=== PATIENT | female | born 2000 | race Hispanic/Latino ===

== ENCOUNTER 2023-01-24 12:42 | Emergency (ER) | payer SELFPAY ==
--- NOTE | 2023-01-24 13:41 | RAD REPORT ---
EXAM DESCRIPTION: RAD - Chest Single View - 01/24/2023 1:27 pm CLINICAL HISTORY: Chest pain;Dyspnea Chest pain. COMPARISON: No comparisons FINDINGS: Portable technique limits examination quality. The lungs are grossly clear. The heart is normal in size. No displaced fractures. IMPRESSION: No acute intrathoracic process suspected.
[2023-01-24 14:47] LABS: Hematocrit 38.8 % (36.0-45.0); Lymphocytes % 28.6 % (15.3-44.8); MCV 86.6 fL (80-100); MPV 8.2 fL (7.6-11.3); RBC Red Blood Cell Count 4.48 M/uL (3.86-4.86)
[2023-01-24 15:13] LABS: BUN Blood Urea Nitrogen 13 mg/dL (7-18); Bicarbonate 28 mmol/L (21-32); Glomerular Filtration Rate 125 ml/min (=/>90); Glucose Level 93 mg/dL (74-106); Potassium 3.4 mmol/L (3.5-5.1); Sodium Level 140 mmol/L (136-145)
[2023-01-24 15:22] LABS: Troponin High Sensitivity < 3.0 pg/mL (<58.9)
[2023-01-24 16:19] VITALS: TEMP 98.2; O2SAT 100
[2023-01-24 16:22] VITALS: BP 109/78
--- NOTE | 2023-01-28 13:17 | EKG ---
Test Date: 2023-01-24 Test Time: 13:10:58 Steel Sash Erector: RABIA MEASUREMENT RESULTS: Intervals: Rate: 73 NE: 128 QRSD: 78 QT: 400 QTc: 440 Preston: P: 50 NE: 128 QRS: 80 T: 33 INTERPRETIVE STATEMENTS: Normal sinus rhythm with sinus arrhythmia Normal ECG No previous ECG available for comparison Electronically Signed On 01-28-23 13:09:20 CDT by Brian Jacobson
--- NOTE | 2023-02-08 15:12 | ER ---
Nurse's Notes [facility] Name: Becky Alexandra Age: 22 yrs Sex: Female : 2000 Arrival Date: 01/24/2023 Time: 12:46 Bed 12 Private MD: Diagnosis: Shortness of breath;Other specified anxiety disorders Presentation: 01/24 12:56 Chief complaint: Patient states: SOB for last 2.5 weeks, and vertigo when moving hb quickly. Coronavirus screen: Vaccine status: Patient reports receiving the 2nd dose of the covid vaccine. Ebola Screen: No symptoms or risks identified at this time. Initial Sepsis Screen: Does the patient meet any 2 criteria? No. Patient's initial sepsis screen is negative. Does the patient have a suspected source of infection? No. Patient's initial sepsis screen is negative. Risk Assessment: Do you want to hurt yourself or someone else? Patient reports no desire to harm self or others. Onset of symptoms was January 07, 2023. 12:56 Method Of Arrival: Ambulatory hb 12:56 Acuity: CELINE 3 hb Triage Assessment: 12:59 General: Appears in no apparent distress. comfortable, Behavior is calm, cooperative, eh3 appropriate for age. Pain: Complains of pain in anterior aspect of left upper chest Pain radiates to left scapular area. EENT: No signs and/or symptoms were reported regarding the EENT system. Neuro: Level of Consciousness is awake, alert, obeys commands, Oriented to person, place, time, situation. Cardiovascular: Capillary refill < 3 seconds Patient's skin is warm and dry. Respiratory: Reports shortness of breath on exertion Airway is patent Respiratory effort is even, unlabored, Respiratory pattern is regular, symmetrical. GI: Abdomen is flat, non-distended, Reports diarrhea. : Reports burning with urination. Derm: Skin is pink, warm \T\ dry. Musculoskeletal: Circulation, motion, and sensation intact. 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 - Social history:: Smoking status: Reported history of juuling and/or vaping. Patient uses alcohol, occasionally. Screenin:59 [facility] ED Fall Risk Assessment (Adult) Score/Fall Risk Level 0 - 2 = Low Risk. Abuse eh3 screen: Denies threats or abuse. Denies injuries from another. Nutritional screening: No deficits noted. Tuberculosis screening: No symptoms or risk factors identified. Assessment: 12:59 Reassessment: No changes from previously documented assessment. See triage assessment. eh3 Pain: Pain began 2.5 weeks ago. 12:59 Pain: Complains of pain in anterior aspect of left upper chest Pain radiates to left eh3 scapular area. 14:00 Reassessment: Patient appears in no apparent distress at this time. Patient and/or 3 family updated on plan of care and expected duration. Pain level reassessed. Patient is alert, oriented x 3, equal unlabored respirations, skin warm/dry/pink. 15:00 Reassessment: Patient appears in no apparent distress at this time. Patient and/or eh3 family updated on plan of care and expected duration. Pain level reassessed. Patient is alert, oriented x 3, equal unlabored respirations, skin warm/dry/pink. Vital Signs: 12:56 BP 139 / 87; Pulse 74; Resp 18; Temp 98.2(TE); Pulse Ox 100% on R/A; Weight 62.14 kg; hb Height 5 ft. 2 in. ; 14:00 BP 107 / 70; Pulse 68; Resp 18; Pulse Ox 100% on R/A; eh3 15:00 BP 109 / 78; Pulse 60; Resp 15; Pulse Ox 100% on R/A; eh3 12:56 Body Mass Index 25.06 (62.14 kg, 157.48 cm) ED Course: 12:46 Patient arrived in ED. mr 12:50 Valarie Garcia FNP is [facility]. 7 12:50 Duane Ochoa MD is Attending Physician. [facility] 12:58 Triage completed. hb 12:59 Arm band placed on right wrist. eh3 13:15 Patient has correct armband on for positive identification. Placed in gown. Bed in low eh3 position. Call light in reach. Side rails up X2. Adult w/ patient. Client placed on continuous cardiac and pulse oximetry monitoring. NIBP monitoring applied. Door closed. Noise minimized. Lights dimmed. Warm blanket given. 13:15 Inserted saline lock: 20 gauge in right antecubital area, using aseptic technique. eh3 Blood collected. Patient maintains SpO2 saturation greater than 95% on room air. 13:29 XRAY Chest (1 view) In Process Unspecified. EDMT 14:26 Lizabeth Escobar, RN is Primary Nurse. [facility] 15:52 No provider procedures requiring assistance completed. IV discontinued, intact, 3 bleeding controlled, No redness/swelling at site. Pressure dressing applied. Administered Medications: No medications were administered Medication: 15:52 VIS not applicable for this client. 3 Outcome: 15:29 Discharge ordered by . [facility] 15:53 Discharged to home ambulatory, with significant other. 3 15:53 Condition: stable 15:53 Discharge instructions given to patient, significant other, Instructed on discharge instructions, follow up and referral plans. medication usage, Demonstrated understanding of instructions, follow-up care, medications, Prescriptions given X 1. 15:53 Patient left the ED. 3 Signatures: Dispatcher [employer] [facility] PottsAugustina welsh mr Aruna Garg, MERARY REAGAN Lizabeth Escobar, RN RN [facility] Valarie Garcia, ANALYSIS OR RESEARCH SAFETY INSPECTOR ANALYSIS OR RESEARCH SAFETY INSPECTOR [facility] Corrections: (The following items were deleted from the chart) 14:46 13:45 Reassessment: No changes from previously documented assessment. See triage [facility] assessment [facility] 14:46 13:45 Pain: Pain began 2.5 weeks ago 3 3
--- NOTE | 2023-02-08 15:12 | EDPHYS ---
Physician Documentation [facility] Name: Becky Alexandra Age: 22 yrs Sex: Female : 2000 Arrival Date: 01/24/2023 Time: 12:46 Bed 12 Private MD: ED Physician Duane Ochoa HPI: 01/24 12:59 This 22 yrs old Female presents to ER via Ambulatory with complaints of Chest jh7 Pain. 12:59 Onset: The symptoms/episode began/occurred 2.5 week(s) ago. Associated signs and jh7 symptoms: Pertinent positives: shortness of breath, Pertinent negatives: abdominal pain, diarrhea, earache, fever, sore throat, vomiting, wheezing. Modifying factors: the patient symptoms are aggravated by activity. 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 - Social history:: Smoking status: Reported history of juuling and/or vaping. Patient uses alcohol, occasionally. ROS: 12:59 Constitutional: Negative for fever, chills, and weight loss, Eyes: Negative for injury, jh7 pain, redness, and discharge, Neck: Negative for injury, pain, and swelling, Abdomen/GI: Negative for abdominal pain, nausea, vomiting, diarrhea, and constipation, Back: Negative for injury and pain, MS/Extremity: Negative for injury and deformity, Skin: Negative for injury, rash, and discoloration, Neuro: Negative for headache, weakness, numbness, tingling, and seizure. 12:59 Cardiovascular: Positive for chest pain, Negative for edema, orthopnea. 12:59 Respiratory: Positive for shortness of breath, Negative for cough, wheezing. 12:59 All other systems are negative. Exam: 12:59 Constitutional: This is a well developed, well nourished patient who is awake, alert, jh7 and in no acute distress. Head/Face: Normocephalic, atraumatic. Eyes: Pupils equal round and reactive to light, extra-ocular motions intact. Lids and lashes normal. Conjunctiva and sclera are non-icteric and not injected. Cornea within normal limits. Periorbital areas with no swelling, redness, or edema. Neck: Trachea midline, no thyromegaly or masses palpated, and no cervical lymphadenopathy. Supple, full range of motion without nuchal rigidity, or vertebral point tenderness. No Meningismus. Cardiovascular: Regular rate and rhythm with a normal S1 and S2. No gallops, murmurs, or rubs. Normal PMI, no JVD. No pulse deficits. Respiratory: Lungs have equal breath sounds bilaterally, clear to auscultation and percussion. No rales, rhonchi or wheezes noted. No increased work of breathing, no retractions or nasal flaring. Abdomen/GI: Soft, non-tender, with normal bowel sounds. No distension or tympany. No guarding or rebound. No evidence of tenderness throughout. Back: No spinal tenderness. No costovertebral tenderness. Full range of motion. Skin: Warm, dry with normal turgor. Normal color with no rashes, no lesions, and no evidence of cellulitis. MS/ Extremity: Pulses equal, no cyanosis. Neurovascular intact. Full, normal range of motion. Neuro: Awake and alert, GCS 15, oriented to person, place, time, and situation. Motor strength 5/5 in all extremities. Sensory grossly intact. Normal gait. Vital Signs: 12:56 BP 139 / 87; Pulse 74; Resp 18; Temp 98.2(TE); Pulse Ox 100% on R/A; Weight 62.14 kg; hb Height 5 ft. 2 in. ; 14:00 BP 107 / 70; Pulse 68; Resp 18; Pulse Ox 100% on R/A; eh3 15:00 BP 109 / 78; Pulse 60; Resp 15; Pulse Ox 100% on R/A; eh3 12:56 Body Mass Index 25.06 (62.14 kg, 157.48 cm) hb MDM: 12:50 Patient medically screened. jh7 15:25 Differential diagnosis: viral Infection, bacterial infection, pneumonia Pulmonary jh7 embolism, pleurisy, anxiety. Data reviewed: vital signs, nurses notes, lab test result(s), EKG, radiologic studies, plain films. Scoring Tools HEART Score: Total Score = 0. Counseling: I had a detailed discussion with the patient and/or guardian regarding: the historical points, exam findings, and any diagnostic results supporting the discharge/admit diagnosis, to return to the emergency department if symptoms worsen or persist or if there are any questions or concerns that arise at home. ED course: The patient asked if this could be due to her anxiety. States that she has felt increasingly anxious at home which usually leads to shortness of breath and chest tightness. Agreed to prescribe hydroxyzine to use as needed for anxiety and advised PCP follow-up.. 01/24 12:58 Order name: Basic Metabolic Panel; Complete Time: 15:23 [facility] 01/24 12:58 Order name: CBC with Diff; Complete Time: 15:14 [facility] 01/24 12:58 Order name: D-Dimer; Complete Time: 15:14 [facility] 01/24 12:58 Order name: Troponin HS; Complete Time: 15:23 [facility] 01/24 12:58 Order name: XRAY Chest (1 view); Complete Time: 13:43 [facility] 01/24 12:58 Order name: EKG; Complete Time: 12:58 [facility] 01/24 12:58 Order name: Cardiac monitoring; Complete Time: 14:45 [facility] 01/24 12:58 Order name: EKG - Nurse/Tech; Complete Time: 13:11 [facility] 01/24 12:58 Order name: IV Saline Lock; Complete Time: 14:45 [facility] 01/24 12:58 Order name: Labs collected and sent; Complete Time: 14:45 [facility] 01/24 12:58 Order name: O2 Per Protocol; Complete Time: 14:45 [facility] 01/24 12:58 Order name: O2 Sat Monitoring; Complete Time: 14:45 [facility] EC:10 Rate is 73 beats/min. Rhythm is regular. QRS [place] is Normal. SC interval is normal at [facility] 128 msec. QRS interval is normal at 78 msec. QT interval is normal at 400 msec. No Q waves. T waves are Normal. No ST changes noted. Clinical impression: Normal ECG. Administered Medications: No medications were administered Disposition: 15:53 Co-signature as Attending Physician, Duane Ochoa MD I reviewed the patient's care rn provided by the Advanced Practice Provider and agree with the diagnosis and treatment plan. Disposition Summary: 01/24/23 15:29 Discharge Ordered Location: Home [facility] Problem: new [facility] Symptoms: are unchanged [facility] Condition: Stable [facility] Diagnosis - Shortness of breath [facility] - Other specified anxiety disorders [facility] Followup: [facility] - With: Private Physician - When: 2 - 3 days - Reason: Recheck today's complaints Discharge Instructions: - Discharge Summary Sheet [facility] - Shortness of Breath, Adult [facility] - Managing Anxiety, Adult [facility] Forms: - Medication Reconciliation Form [facility] - Thank You Letter [facility] Prescriptions: - Hydroxyzine HCl 25 mg Oral Tablet - take 1 tablet by ORAL route every 6 hours As needed; 20 tablet; Refills: 0, jh7 Product Selection Permitted Signatures: Dispatcher [employer] EDDuane Graham MD MD rn EscobarLizabeth RN RN [facility] Valarie Garcia, STOCK BUYER [place] [address]
== END 2023-01-24 15:53 | disposition home or self-care (01) ==
LOC: ER 12:42
DX: F41.8 Other specified anxiety disorders (principal)
CPT/HCPCS: 36415; 71045; 80048; 84484; 85025; 85379; 93005; 99284

== ENCOUNTER 2023-03-30 12:25 | Emergency (ER) | payer SELFPAY ==
--- OUTSIDE RECORDS SUMMARY | 2023-03-30 12:28 | XMS REPORT | Continuity of Care Document ---
:2000 Author Organization [facility] t Address [address] [place] [address] Care Team Providers Name Role Phone Unavailable Unavailable Unavailable Problems This patient has no known problems. Allergies, Adverse Reactions, Alerts This patient has no known allergies or adverse reactions. Medications This patient has no known medications. Procedures This patient has no known procedures. Encounters Start End Encounter Admission Attending Care Care Encounter Source Date/Time Date/Time Type Type Clinicians Facility Department ID 2023-02-11 2023-02-11 Outpatient [facility] [place] 13:31:49 13:31:49 [id number] F Clayton 2022-10-31 2022-10-31 Outpatient [facility] [place] 15:08:39 15:08:39 [id number] F Clayton 2022-10-05 2022-10-05 Outpatient [facility] [place] 11:29:30 11:29:30 [id number] F Clayton Results Test Description Test Time Test Comments Results Result Comments Source VITAMIN D, 25 OH 2023-02-12 05:21:57 Test Item Value Reference Range Interpretation Comme nts VITAMIN D, 25 OH (test 27 NG/ML SEE BELOW L E FFECTIVE 11/26/2022, PLEASE NOTE code = 4958) NEW METHODOLOGY IS ELECTROCHEMILUM INESCENCE BINDING ASSAY. NOTE: 25-HYDROX YVITAMIN D ASSAY INCLUDES 25-HYDROXYVITAM IN D2 AND D3. INTERPRETIVE RA NGES PEDIATRIC (<17 YEARS) . . . . . . . . . . . NG/ML 20-100ADULT: IN SUFFICIENT . . . . . . . . . . . . . . N G/ML <20 SUBOPTIMAL . . . . . . . . . . . . . . . NG/ML 20-29 OPTIMAL . . . . . . . . . . . . . . . . . NG/ML 30-100 TSH, THIRD [id number] 05:21:30 Test Item Value Reference Range Interpretation Comments TSH, THIRD GENERATION (test code 1.780 UIU/ML 0.400-4.100 = 2821) [id number] 05:21:30 Test Item Value Reference Range Interpretation Comments FERRITIN (test code 12 NG/ML 13-200 L [facility] has important = 2074) pathology staff changes effective 01/16. New pathology s taff will provide uninter rupted, excellent patie nt care and clinical consultation. S ee URL: [email or web address]. UNLESS O THERWISE INDICATED, ALL TESTING PERFORMED AT [facility] [employer], [place]. [address] [place] [id number] [place] [address] DIRECTOR: Rajesh TONG AIDEN NUMBER [id number] CAP ACCREDITATION N O. [id number] VITAMIN [id number] 05:21:30 Test Item Value Reference Range Interpretation Comments VITAMIN B-12 (test code = 2840) 320 PG/ML 200-950 COMPREHENSIVE METABOLIC [id number] 03:55:46 Test Item Value Reference Range Interpretation Comments GLUCOSE (test code = 79 MG/DL 70-99 2216) BUN (test code = 13 MG/DL -2207) CREATININE (test 0.73 MG/DL 0.60-1.30 code = 2214) eGFR (2020 CKD-EPI) 118 >60 (test code = 15698) ML/MIN/1.73 CALC BUN/CREAT (test 18 RATIO 05-15 code = 2235) SODIUM (test code = 141 MEQ/L 253-650 4734) POTASSIUM (test code 3.7 MEQ/L 3.5-5.4 = 8) CHLORIDE (test code 106 MEQ/L 95-107 = 2215) CARBON DIOXIDE (test 23 MEQ/L 19-31 code = 2206) CALCIUM (test code = 9.7 MG/DL 8.5-10.5 2208) PROTEIN, TOTAL (test 6.9 G/DL 6.1-8.3 code = 2229) ALBUMIN (test code = 4.7 G/DL 3.5-5.2 2201) CALC GLOBULIN (test 2.2 G/DL 1.9-3.7 code = 2240) CALC A/G RATIO (test 2.1 RATIO 1.0-2.6 code = 2234) BILIRUBIN, TOTAL 0.3 MG/DL See_Comment [Automated message] (test code = 2207) The syste m which generated this result transmit aileen reference range : <=1.2. The refe rence range was not u sed to interpret th is result as normal/abnormal . ALKALINE PHOSPHATASE 67 U/L 40-117 (test code = 220) AST (test code = 17 U/L 9-40 2217) ALT (test code = 14 U/L 5-40 2218) CBC W/AUTO DIFF WITH [id number] 03:41:52 Test Item Value Reference Range Interpretation Comments WBC (test code = 6.6 K/UL 3.5-11.0 1001) RBC (test code = 4.80 M/UL 3.80-5.40 1002) HEMOGLOBIN (test code 14.1 G/DL 11.5-15.5 = 1003) HEMATOCRIT (test code 42.0 % 34.0-45.0 = 1004) MCV (test code = 87.5 fL 80.0-99.0 1005) MCH (test code = 29.4 PG 25.0-33.0 1006) MCHC (test code = 33.6 G/DL 31.0-36.0 1007) RDW (test code = 12.4 % 11.5-15.0 1038) NEUTROPHILS (test 68.7 % code = 1008) LYMPHOCYTES (test 24.0 % code = 1010) MONOCYTES (test code 6.0 % = 1011) EOSINOPHILS (test 0.5 % code = 1012) BASOPHILS (test code 0.6 % = 1013) IMMATURE GRANULOCYTES 0.2 % (test code = 1036) NUCLEATED RBCS (test 0.0 /100 WBC'S See_Comment [Aut omated code = 1065) message] The sy stem which generated this result transmitted reference range : 0.0. The refere nce range was not u sed to interpret th is result as normal/abnormal . PLATELET COUNT (test 261 K/UL 130-400 code = 1015) ABSOLUTE NEUTROPHILS 4.55 K/UL 1.50-7.50 (test code = 1066) ABSOLUTE LYMPHOCYTES 1.59 K/UL 1.00-4.00 (test code = 1067) ABSOLUTE MONOCYTES 0.40 K/UL 0.20-1.00 (test code = 1068) ABSOLUTE EOSINOPHILS 0.03 K/UL 0.00-0.50 (test code = 1040) ABSOLUTE BASOPHILS 0.04 K/UL 0.00-0.20 (test code = 1069) ABS IMMATURE 0.01 K/UL 0.00-0.10 GRANULOCYTES (test code = 1020) ABS NUCLEATED RBCS 0.00 K/UL 0.00-0.11 (test code = 43798) CULTURE, [id number] 09:59:24SPECIMEN NUMBER: [id number] CULTURE, URINE SPECIMEN NUMBER: [id number] SPECIMEN COMMENT: URINE SOURCE:URINE REPORT STATUS: FINAL FINAL REPORT: 11/02/2022 <10,000 CFU/ML UROGENITAL CONCHIS PRESENT NO CO MMON PATHOGENS UNLESS OTHERWISE INDICATED, ALL TESTING PERFORMED [facility] [address] [place] [address], [place] [address] RECHARGER: SAUL PÉREZ M.D. CLIA NUMBER [id number] [place]. [id number]
--- NOTE | 2023-03-30 13:49 | RAD REPORT ---
EXAM DESCRIPTION: RAD - Chest Single View - 03/30/2023 1:43 pm CLINICAL HISTORY: SOB COMPARISON: none FINDINGS: Lines: None. Lungs: No evidence of edema or pneumonia. Pleural: No significant pleural effusions or pneumothorax. Cardiac: The heart size is within normal limits. Mediastinum: Within normal limits. Bones: No acute fractures. Other: None IMPRESSION: No acute cardiopulmonary disease.
[2023-03-30 13:52] LABS: Specific Gravity 1.019 (1.005-1.030); Urine Bacteria None Seen /HPF (<20); Urine Bilirubin NEGATIVE (Negative); Urine Blood 1+ (Negative); Urine Clarity Turbid (Clear); Urine Color Light-Yellow (Yellow); Urine Glucose NEGATIVE (Negative); Urine Mucus Slight /HPF (None Seen); Urine Protein NEGATIVE (Negative); Urine Urobilinogen Normal (Normal)
[2023-03-30 13:54] LABS: Absolute Lymphocytes (CBC) 1.8 K/uL (0.7-4.9); Hematocrit 42.5 % (36.0-45.0); Lymphocytes % 24.4 % (15.3-44.8); MCV 88.3 fL (80-100); MPV 8.2 fL (7.6-11.3); RBC Red Blood Cell Count 4.81 M/uL (3.86-4.86)
[2023-03-30 14:06] LABS: BUN Blood Urea Nitrogen 11 mg/dL (7-18); Bicarbonate 27 mEq/L (21-32); Glomerular Filtration Rate 122 ml/min (=/>90); Glucose Level 79 mg/dL (74-106); Magnesium 2.2 mg/dL (1.6-2.4); NT PRO-BNP 25 pg/mL (<125); Potassium 3.2 mEq/L (3.5-5.1); Sodium Level 137 mEq/L (136-145)
[2023-03-30 14:08] LABS: Troponin High Sensitivity < 3.0 pg/mL (<58.9)
--- NOTE | 2023-03-30 14:39 | EDPHYS ---
Physician Documentation [facility] Name: Becky Alexandra Age: 22 yrs Sex: Female : 2000 Arrival Date: 03/30/2023 Time: 12:25 Bed 15 Private MD: ED Physician Rui Quigley HPI: 03/30 13:15 This 22 yrs old Female presents to ER via Ambulatory with complaints of cp Shortness Of Breath. 13:15 The patient has shortness of breath at rest, with light activity. Onset: The cp symptoms/episode began/occurred for past several months. patient reports she was seen in this ED for similar complaints and by family physician who prescribed iron tablets due to low iron. Associated signs and symptoms: Pertinent positives: chest pain, sore throat from "mouth breathing", Pertinent negatives: non-productive cough, productive cough, diaphoresis, dizziness, fever, vomiting. Severity of symptoms: in the emergency department the symptoms are unchanged despite home interventions. Historical: - Allergies: 12:36 No Known Allergies; aa5 - PMHx: 12:36 None; aa5 - PSHx: 12:36 None; aa5 - Immunization history:: Adult Immunizations unknown. - Social history:: Smoking status: Patient denies any tobacco usage or history of. Patient uses street drugs, marijuana. ROS: 13:20 Constitutional: Negative for body aches, chills, fever, poor PO intake. cp 13:20 Eyes: Negative for injury, pain, redness, and discharge. cp 13:20 ENT: Positive for sore throat, Negative for drainage from ear(s), ear pain, sinus congestion, sinus pain, difficulty swallowing, difficulty handling secretions. 13:20 Cardiovascular: Positive for chest pain, Negative for edema, palpitations. 13:20 Respiratory: Positive for shortness of breath, Negative for cough, wheezing. 13:20 Abdomen/GI: Negative for abdominal pain, vomiting, diarrhea, constipation. 13:20 Back: Negative for radiated pain. 13:20 Skin: Negative for rash. 13:20 Neuro: Negative for altered mental status, dizziness, headache, syncope, weakness. 13:20 All other systems are negative. Exam: 13:25 Constitutional: The patient appears in no acute distress, alert, awake, comfortable, cp non-diaphoretic, non-toxic, well developed, well nourished. 13:25 Head/Face: Normocephalic, atraumatic. cp 13:25 Eyes: Periorbital structures: appear normal, Conjunctiva: normal, no exudate, no injection, Sclera: no appreciated abnormality, Lids and lashes: appear normal, bilaterally. 13:25 ENT: External ear(s): are unremarkable, Nose: is normal, Mouth: Lips: moist, Oral mucosa: pink and intact, moist, Posterior pharynx: is normal, airway is patent, no erythema, no exudate. 13:25 Neck: ROM/movement: is normal, is supple, without pain, no range of motions limitations, no nuchal rigidity. 13:25 Chest/axilla: Inspection: normal. 13:25 Cardiovascular: Rate: normal, Rhythm: regular, Heart sounds: murmur, not appreciated, Edema: is not appreciated, JVD: is not appreciated. 13:25 Respiratory: the patient does not display signs of respiratory distress, Respirations: normal, no use of accessory muscles, no retractions, labored breathing, is not present, Breath sounds: are clear throughout, no decreased breath sounds, no stridor, no wheezing. 13:25 Abdomen/GI: Inspection: abdomen appears normal, Palpation: abdomen is soft and non-tender, in all quadrants. 13:25 Back: pain, is absent, ROM is normal. 13:25 Neuro: Orientation: to person, place \\T\\ time. Mentation: is normal, Motor: moves all fours, strength is normal, Sensation: is normal, Gait: is steady, at a normal pace, without difficulty. 13:50 ECG was reviewed by the Attending Physician. cp Vital Signs: 12:34 BP 146 / 81; Pulse 80; Resp 19 S; Temp 97.8(TE); Pulse Ox 100% on R/A; Weight 61.23 kg aa5 (R); Height 5 ft. 2 in. (R); 13:47 BP 124 / 84; Pulse 78; Resp 15 S; Pulse Ox 100% on R/A; kc6 12:34 Body Mass Index 24.69 (61.23 kg, 157.48 cm) aa5 MDM: 12:36 Patient medically screened. cp 14:38 Data reviewed: vital signs, nurses notes, lab test result(s), EKG, radiologic studies, cp plain films. 14:38 Differential diagnosis: Anemia Anxiety Reaction asthma, Bronchitis Chronic Obstructive cp Pulmonary Disease pneumonia, Pneumothorax pulmonary edema, Pulmonary Embolism. Antibiotic administration: Not indicated, the patient does not have an appreciated infiltrate. Consideration of Admission/Observation Escalation of care including admission/observation considered. Test considered but Not performed: CT: chest. Counseling: I had a detailed discussion with the patient and/or guardian regarding: the historical points, exam findings, and any diagnostic results supporting the discharge/admit diagnosis, lab results, radiology results, the need for outpatient follow up, a family practitioner, to return to the emergency department if symptoms worsen or persist or if there are any questions or concerns that arise at home. Special discussion: Based on the patient's history, exam, and Dx evaluation, there is no indication for emergent intervention or inpatient Tx. It is understood by the patient/guardian that if the Sx's persist or worsen they need to return immediately for re-evaluation. 03/30 13:10 Order name: Basic Metabolic Panel; Complete Time: 14:11 cp 03/30 14:11 Interpretation: Normal except: K 3.2; CL 108. cp 03/30 13:10 Order name: CBC with Diff; Complete Time: 14:11 cp 03/30 13:10 Order name: D-Dimer; Complete Time: 14:11 cp 03/30 14:11 Interpretation: Reviewed. cp 03/30 13:10 Order name: Magnesium; Complete Time: 14:11 cp 03/30 13:10 Order name: NT PRO-BNP; Complete Time: 14:11 cp 03/30 13:10 Order name: Troponin HS; Complete Time: 14:11 cp 03/30 13:10 Order name: PREGU; Complete Time: 14:11 cp 03/30 13:10 Order name: Urinalysis W/Microscopic; Complete Time: 14:11 cp 03/30 14:11 Interpretation: Normal except: UCLA Turbid; UBLD 1+; URBC 5-10. cp 03/30 13:10 Order name: XRAY Chest (1 view); Complete Time: 14:11 cp 03/30 13:10 Order name: EKG; Complete Time: 13:11 cp 03/30 13:10 Order name: Cardiac monitoring; Complete Time: 13:41 cp 03/30 13:10 Order name: EKG - Nurse/Tech; Complete Time: 13:41 cp 03/30 13:10 Order name: IV Saline Lock; Complete Time: 13:35 cp 03/30 13:10 Order name: Labs collected and sent; Complete Time: 13:35 cp 03/30 13:10 Order name: O2 Per Protocol; Complete Time: 13:36 cp 03/30 13:10 Order name: O2 Sat Monitoring; Complete Time: 13:36 cp EC:50 Rate is 75 beats/min. Rhythm is regular. AK interval is normal. QRS interval is normal. cp QT interval is normal. T waves are Inverted in lead V3. Interpreted by me. Reviewed by me. Administered Medications: 14:58 Drug: Potassium PO Effervescent Tablet 50 mEq Route: PO; kc6 15:00 Follow up: Response: No adverse reaction kc6 Disposition Summary: 03/30/23 14:39 Discharge Ordered Location: Home cp Problem: an ongoing problem cp Symptoms: have improved cp Condition: Stable cp Diagnosis - Shortness of breath cp - Hypokalemia cp Followup: cp - With: Private Physician - When: 2 - 3 days - Reason: Recheck today's complaints Discharge Instructions: - Discharge Summary Sheet cp - Potassium Content of Foods cp - Shortness of Breath, Adult cp - Hypokalemia cp Forms: - Medication Reconciliation Form cp - Thank You Letter cp - Antibiotic Education cp - Prescription Opioid Use cp Prescriptions: - albuterol sulfate 90 mcg/actuation Inhalation HFA Aerosol Inhaler - inhale 1 puff by INHALATION route every 4 to 6 hours as needed for shortness of cp breath or wheezing; 1 unit; Refills: 0, Product Selection Permitted - Potassium Chloride 10 mEq Oral capsule, extended release - take 1 tablet by ORAL route once daily; 5 tablet; Refills: 0, Product Selection cp Permitted Signatures: Dispatcher [employer] Brisa Gauthier RN RN aa5 Elmer Prabhakar PA PA cp Katharine Serrano RN RN kc6 Corrections: (The following items were deleted from the chart) 03/31 12:12 03/30 13:15 Associated signs and symptoms: Pertinent positives: chest pain, sore throat cp from "breathing", Pertinent negatives: non-productive cough, productive cough, diaphoresis, dizziness, fever, vomiting, cp
--- NOTE | 2023-03-30 14:39 | ER ---
Nurse's Notes [facility] Name: Becky Alexandra Age: 22 yrs Sex: Female : 2000 Arrival Date: 03/30/2023 Time: 12:25 Bed 15 Private MD: Diagnosis: Shortness of breath;Hypokalemia Presentation: 03/30 12:34 Chief complaint: Patient states: "I was seen here a couple months ago and I've been aa5 feeling short of breath on and off since then, my chest hurts, my ears feel muffled, and my throat is getting sore because when I feel short of breath I have been mouth breathing". Pt reports SOB is episodic. Pt states "last time they said to take Iron but I only had enough for a month so I stopped taking it after a month". Coronavirus screen: shortness of breath. Ebola Screen: Patient denies travel to an Ebola-affected area in the 21 days before illness onset. Initial Sepsis Screen: Does the patient meet any 2 criteria? No. Patient's initial sepsis screen is negative. Does the patient have a suspected source of infection? No. Patient's initial sepsis screen is negative. Risk Assessment: Do you want to hurt yourself or someone else? Patient reports no desire to harm self or others. Onset of symptoms was March 2023. 12:34 Acuity: CELINE 3 aa5 12:34 Method Of Arrival: Ambulatory aa5 Historical: - Allergies: 12:36 No Known Allergies; aa5 - PMHx: 12:36 None; aa5 - PSHx: 12:36 None; aa5 - Immunization history:: Adult Immunizations unknown. - Social history:: Smoking status: Patient denies any tobacco usage or history of. Patient uses street drugs, marijuana. Screenin:43 [facility] ED Fall Risk Assessment (Adult) History of falling in the last 3 months, kc6 including since admission No falls in past 3 months (0 pts) Confusion or Disorientation No (0 pts) Intoxicated or Sedated No (0 pts) Impaired Gait No (0 pts) Mobility Assist Device Used No (0 pt) Altered Elimination No (0 pt) Score/Fall Risk Level 0 - 2 = Low Risk Oriented to surroundings, Maintained a safe environment, Educated pt \\T\\ family on fall prevention, incl call for assistance when getting out of bed, Assessed \\T\\ reinforced patient's understanding of fall precautions, Hourly rounding (assess needs \\T\\ fall precautionary measures) done. Abuse screen: Denies threats or abuse. Denies injuries from another. Nutritional screening: No deficits noted. Tuberculosis screening: No symptoms or risk factors identified. Assessment: 13:43 General: Appears in no apparent distress. comfortable. Pain: Denies pain. Neuro: kc6 [place] Agitation-Sedation Scale (RASS): 0 - Alert and Calm Level of Consciousness is awake, alert, obeys commands, Oriented to person, place, time, situation, Appropriate for age. Cardiovascular: Heart tones S1 S2 present Capillary refill < 3 seconds Rhythm is sinus rhythm. Respiratory: Reports shortness of breath Airway is patent Trachea midline Respiratory effort is even, unlabored, Respiratory pattern is regular, symmetrical, Breath sounds are clear bilaterally. GI: No signs and/or symptoms were reported involving the gastrointestinal system. : No signs and/or symptoms were reported regarding the genitourinary system. EENT: No signs and/or symptoms were reported regarding the EENT system. Derm: No signs and/or symptoms reported regarding the dermatologic system. Skin is intact, Skin is pink, warm \\T\\ dry. Musculoskeletal: No signs and/or symptoms reported regarding the musculoskeletal system. Circulation, motion, and sensation intact. Capillary refill < 3 seconds, Range of motion: intact in all extremities. 14:35 Reassessment: Patient appears in no apparent distress at this time. No changes from kc6 previously documented assessment. Patient and/or family updated on plan of care and expected duration. Pain level reassessed. Patient is alert, oriented x 3, equal unlabored respirations, skin warm/dry/pink. Vital Signs: 12:34 BP 146 / 81; Pulse 80; Resp 19 S; Temp 97.8(TE); Pulse Ox 100% on R/A; Weight 61.23 kg aa5 (R); Height 5 ft. 2 in. (R); 13:47 BP 124 / 84; Pulse 78; Resp 15 S; Pulse Ox 100% on R/A; kc6 12:34 Body Mass Index 24.69 (61.23 kg, 157.48 cm) aa5 ED Course: 12:33 Patient arrived in ED. aa5 12:33 Arm band placed on. aa5 12:36 Triage completed. aa5 12:36 Elmer Prabhakar PA is PHCP. cp 12:36 Rui Quigley MD is Attending Physician. cp 13:35 Urinalysis W/Microscopic Sent. bc6 13:35 PREGU Sent. bc6 13:36 Katharine Serrano, RN is Primary Nurse. kc6 13:36 Basic Metabolic Panel Sent. bc6 13:36 CBC with Diff Sent. bc6 13:36 D-Dimer Sent. bc6 13:36 Magnesium Sent. bc6 13:36 NT PRO-BNP Sent. bc6 13:36 Troponin HS Sent. bc6 13:36 Inserted saline lock: 20 gauge in right antecubital area, using aseptic technique. bc6 13:43 Patient has correct armband on for positive identification. Bed in low position. Call kc6 light in reach. Side rails up X 1. 13:45 XRAY Chest (1 view) In Process Unspecified. EDMS Administered Medications: 14:58 Drug: Potassium PO Effervescent Tablet 50 mEq Route: PO; kc6 15:00 Follow up: Response: No adverse reaction kc6 Outcome: 14:39 Discharge ordered by . cp 15:02 Patient left the ED. kc6 Signatures: Dispatcher [employer] EDMS Brisa Winter RN RN aa5 Elmer Prabhakar PA PA cp Katharine Serrano, MERARY RN kc6 [facility] Corrections: (The following items were deleted from the chart) 12:37 12:34 Chief complaint: Patient states: "I was seen here a couple months ago and I've aa5 been feeling short of breath on and off since then, my chest hurts, my ears feel muffled, and my throat is getting sore because when I feel short of breath I have been mouth breathing". Pt reports SOB is episodic. aa5
[2023-03-30] MEDS ORDERED: POTASSIUM 25 MEQ EFFERV TAB ONE (14:59)
[2023-03-30 15:26] VITALS: TEMP 97.8; O2SAT 100
[2023-03-30 15:28] VITALS: BP 124/84
--- NOTE | 2023-04-01 11:46 | EKG ---
Test Date: 2023-03-30 Test Time: 13:43:04 Machine Coremaker: SOLO MEASUREMENT RESULTS: Intervals: Rate: 75 KS: 134 QRSD: 82 QT: 382 QTc: 426 [place]: P: 49 KS: 134 QRS: 79 T: 22 INTERPRETIVE STATEMENTS: Normal sinus rhythm with sinus arrhythmia Normal ECG Compared to ECG 01/24/2023 13:10:58 No significant changes Electronically Signed On 04-01-23 11:41:50 CDT by Lalo Schneider
== END 2023-03-30 15:02 | disposition home or self-care (01) ==
LOC: ER 12:25
DX: E87.6 Hypokalemia (principal)
CPT/HCPCS: 36415; 71045; 80048; 81001; 81025; 83735; 83880; 84484; 85025; 85379; 93005; 99284